=== PATIENT | male | born 1970 | race Asian ===

== ENCOUNTER → 2016-05-10 | Outpatient (CLI) | payer OTHER ==
--- NOTE | 2016-05-10 16:01 | DIAGNOSTIC IMAGING REPORT ---
CHEST 2 VIEWS ROUTINE CLINICAL HISTORY: Chest tightness. COMPARISON STUDY: No previous studies for comparison. FINDINGS: Lung volumes are normal. Lungs are clear. Cardiac size is normal. Mediastinal contours are normal. There is no evidence of pulmonary edema. There is no pneumothorax or pleural effusion. There may be several calcified nodules within the lungs. IMPRESSION: No acute cardiopulmonary findings. Electronically signed by: Edi Grubbs M.D. 05/10/2016 4:00 PM Dictated Date/Time: 05/10/2016 3:59 PM
== END | disposition home or self-care (01) ==
LOC: C.RADBC 15:36
PROVIDERS: ATTEND Internal Medicine
DX: R07.89 Other chest pain (principal)

== ENCOUNTER → 2016-05-15 | Outpatient (CLI) | payer OTHER ==
[2016-05-15 10:53] LABS: HEMATOCRIT 44.6 % (42-52); MEAN CELL VOLUME 80.4 fL (80-100); MEAN CORPUSCULAR HEMOGLOBIN 27.6 pg (25-34); MEAN CORPUSCULAR HGB CONC 34.3 g/dl (32-36); PLATELET COUNT 206 K/uL (130-400); RED BLOOD COUNT 5.55 M/uL (4.7-6.1); WHITE BLOOD COUNT 7.33 K/uL (4.8-10.8)
[2016-05-15 11:05] LABS: ALT/SGPT 93 U/L (12-78); AST/SGOT 36 U/L (15-37); BLOOD UREA NITROGEN 10 mg/dl (7-18); BUN/CREATININE RATIO 9.3 (10-20); CALCIUM 9.3 mg/dl (8.5-10.1); CARBON DIOXIDE 24 mmol/L (21-32); CHLORIDE 107 mmol/L (98-107); GLUCOSE 97 mg/dl (70-99); SODIUM 141 mmol/L (136-145)
[2016-05-15 11:08] LABS: ALB/GLOB RATIO 1.1 (0.9-2); ALKALINE PHOSPHATASE 54 U/L (45-117); CHOLESTEROL 222 mg/dl (0-200); CHOLESTEROL/HDL RATIO 5.6; HDL CHOLESTEROL 40 mg/dl; LDL CHOLESTEROL CALCULATED 107 mg/dl; TRIGLYCERIDES 373 mg/dl (0-150); VERY LOW DENSITY LIPOPROT CALC 75 mg/dl
== END | disposition home or self-care (01) ==
LOC: C.LAB1850 09:18
PROVIDERS: ATTEND Internal Medicine
DX: K76.0 Fatty (change of) liver, not elsewhere classified (principal); E78.5 Hyperlipidemia, unspecified; I10 Essential (primary) hypertension; R07.89 Other chest pain

== ENCOUNTER 2017-05-09 13:54 | Emergency (ER) | payer OTHER ==
[~2017-05-09] VITALS: Ht 172.7 cm; Wt 95.5 kg
[2017-05-09 14:03] VITALS: Ht 172.7 cm; Wt 95.5 kg
[2017-05-09] MEDS ORDERED: KETOROLAC TROMETHAMINE 60 MG/2 ML VIAL IM STA (14:43)
[2017-05-09] MEDS ORDERED: DEXAMETHASONE **PF** INJ 10 MG/ML VIAL IM ONE (14:45)
--- NOTE | 2017-05-09 15:30 | DIAGNOSTIC IMAGING REPORT ---
L-SPINE MIN 4 VIEWS ROUTINE CLINICAL HISTORY: Low back pain. COMPARISON: None FINDINGS: There is mild dextroscoliosis of lumbar spine. No fracture or suspicious lesion is evident. There is no significant disc space narrowing. Facet joints are intact. IMPRESSION: 1. No lumbar spine fracture. 2. Minimal rightward curvature of the lumbar spine. 3. No significant disc space narrowing or facet arthrosis by radiography. Electronically signed by: Edi Grubbs M.D. 05/09/2017 3:29 PM Dictated Date/Time: 05/09/2017 3:27 PM
[2017-05-09] MEDS ORDERED: IBUP-1451 PO (15:56)
[2017-05-09] MEDS ORDERED: CYCL10TA6 PO (15:56)
[2017-05-09] MEDS ORDERED: METH4PAK PO (15:56)
[2017-05-09] MEDS ORDERED: OXYC1TAB3 PO (15:56)
--- NOTE | 2017-05-09 15:57 | EMERGENCY ROOM VISIT NOTE ---
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 He describes bilateral low back pain, right worse than left that radiates into the posterior aspect of the right leg, down to his calf. He has had pain for a couple of months, and has been followed by his primary care doctor, Dr. Castellanos, for this. He reports he did a course of prednisone in mid February which helped slightly, and is presently in physical therapy, he was scheduled for physical therapy today. 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 It radiates into the right buttocks, down the posterior thigh to the calf. He has taken several doses of ibuprofen, with minimal relief , and applied heat to the area. He is having difficulty finding a comfortable position. He states that lying flat is best, and he has increased pain with position changes, particularly when he sits on hard surfaces. He denies any numbness, tingling or weakness into the lower extremities, no bowel or bladder incontinence or saddle anesthesias. He presently rates his pain a 10/10. REVIEW OF SYSTEMS: Review of systems as per HPI. All other systems reviewed were negative. 10 systems reviewed. PMH: Electronic medical records are reviewed and summarized as above/below. See Problem List. SOCIAL HISTORY: Patient lives at home with roommates. He does not smoke or drink alcohol. PHYSICAL EXAM: Vital Signs: Reviewed Nurse's notes. CONSTITUTIONAL: Patient is an uncomfortable appearing 46-year-old male who is awake and alert and seated on the edge of the [place] in mild distress due to his stated complaint. There is significant discomfort with position changes. NECK: No bruits auscultated. Supple without lymphadenopathy. No thyromegaly. No meningeal signs. Full active range of motion without discomfort. CARDIOVASCULAR: Regular rate and rhythm, with normal S1 and S2, no murmur or gallop or rub is heard. No carotid bruits auscultated. No JVD. Peripheral pulses easily palpable. RESPIRATORY: Breath sounds equal and clear to auscultation without wheezes, rales, or rhonchi heard. Full and equal chest expansion without accessory muscle use or retractions. ABDOMEN: Bowel sounds are present. Abdomen is soft, nontender and nondistended. INTEGUMENTARY: No lesions or rash, normal skin turgor. LYMPH: No lymphadenopathy. SPINE: Examination of the patient's back does not demonstrate any ecchymosis, abrasions or outward signs of trauma. No erythema, increased warmth or induration. Patient has no midline tenderness over the thoracolumbar spinous processes, he has some mild right paraspinous muscle tenderness without spasm, and has some right SI joint discomfort as well. Range of motion is essentially unable to be performed due to pain. EXTREMITIES: Leg lengths are symmetrical. Negative logroll bilaterally. Normal strength including dorsi-flexion and plantar flexion of the great toes and ankles and flexion and extension of the knees and flexion of the hips. Positive seated straight leg raise testing on the right. Lower extremity DTRs are equal and symmetrical bilaterally. Distal pulses are easily palpable. Sensation light touch is intact over the lower extremities bilaterally. EMERGENCY DEPARTMENT COURSE: The patient was seen and evaluated as above. His old records were reviewed. He presents to the emergency department for evaluation of severe low back pain, he has had problems for several months and is currently in physical therapy. 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 On physical exam, he has radicular right low back pain, no weakness, and no signs or symptoms consistent with acute cord compression or cauda equina syndrome. He was offered medication for discomfort, he declined narcotic analgesia due to obligations this evening, and therefore was given Toradol 60 mg and Decadron 10 mg IM. Lumbar spine x-rays were obtained. X-ray findings are as noted below. On reassessment, the patient reported slight relief of hip pain, rated his discomfort a 7/10 at discharge. Continue conservative care measures were discussed with the patient. As he has previously stated, he is busy this weekend and cannot take any sedating medications regularly, but was agreeable to use them at bedtime only. He did have some relief with a prior course of prednisone and therefore was placed on an additional Medrol Dosepak. He was given prescriptions for Flexeril and oxycodone, and instructed on dosing and schedule. He was advised to follow-up with his primary care provider next week for further care and evaluation, as I suspect that he may benefit from an MRI. The patient expressed understanding of this and was agreeable. He was educated on the worrisome signs or symptoms for which he should return to the emergency department. 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 Medication reconciliation: I attest that I have personally reviewed the patient' s current medication list. Blood pressure screening : Patient was found to have normal blood pressure on screening and does not require follow-up. Patient was reviewed in the [facility] Prescription Drug Monitoring Program, and there was no record. L-SPINE MIN 4 VIEWS ROUTINE CLINICAL HISTORY: Low back pain. COMPARISON: None FINDINGS: There is mild dextroscoliosis of lumbar spine. No fracture or suspicious lesion is evident. There is no significant disc space narrowing. Facet joints are intact. IMPRESSION: 1. No lumbar spine fracture. 2. Minimal rightward curvature of the lumbar spine. 3. No significant disc space narrowing or facet arthrosis by radiography. Problem List Medical Problems: (1) Essential (Primary) Hypertension Status: Chronic (2) Stomach problems Status: Chronic Current/Historical Medications Scheduled Lisinopril (Zestril), 10 MG PO DAILY Methylprednisolone (Medrol Dosepak), 0 PO DAILY Multivitamins/Minerals (Mvi With Minerals), 1 TAB PO DAILY Omeprazole (Prilosec), 20 MG PO DAILY Scheduled PRN Cyclobenzaprine Hcl (Flexeril), 10 MG PO TID PRN for Muscle Spasms Ibuprofen Tab (Motrin), 800 MG PO TIDM PRN for Pain Ibuprofen Tab (Advil), 800 MG PO Q8 PRN for Pain Oxycodone Immediate Rel Tab (Roxicodone Ir), 1-2 TAB PO Q4H PRN for Severe Pain Allergies Coded Allergies: Aspirin (Verified Allergy, Severe, GI SYMPTOMS, 05/09/17) Penicillins (Verified Allergy, Unknown, STRONG FAMILY HX., 05/09/17) Prochlorperazine (Verified Adverse Reaction, Severe, LOSS OF MUSCLE CONTROL, 05/09/17) Vital Signs Date Time Temp Pulse Resp B/P (MAP) Pulse Ox O2 Delivery O2 Flow Rate FiO2 05/09/17 16:06 36.8 81 19 121/82 94 05/09/17 14:03 36.8 81 20 115/76 97 Room Air Medications Administered Medications (Trade) Dose Ordered Sig/Alexi Route Start Time Stop Time Status Last Admin Dose Admin Dexamethasone Sodium Phosphate (Dexamethasone Inj Pf) 10 mg NOW ONCE IM 05/09/17 14:45 05/09/17 14:46 DC 05/09/17 14:52 10 MG Ketorolac Tromethamine (Toradol Inj) 60 mg NOW STAT IM 05/09/17 14:43 05/09/17 14:45 DC 05/09/17 14:52 60 MG Departure Information Impression Primary Impression: Acute radicular low back pain Prescriptions Ibuprofen Tab (MOTRIN) 800 Mg Tab 800 MG PO TIDM Y for Pain, #90 TAB Prov: Renee May PA 05/09/17 Oxycodone Immediate Rel Tab (ROXICODONE IR) 5 Mg Tab 1-2 TAB PO Q4H Y for Severe Pain, #30 TAB For Initial Treatment Prov: Renee May PA 05/09/17 Methylprednisolone (MEDROL DOSEPAK) 4 Mg Sean 0 PO DAILY, #1 PKT ONCE DAILY DIRECTED. Prov: Renee May PA 05/09/17 Cyclobenzaprine Hcl (FLEXERIL) 10 Mg Tab 10 MG PO TID Y for Muscle Spasms, #30 TAB Prov: Renee May PA 05/09/17 Referrals Sobia Castellanos M.D. (PCP) Patient Instructions My [facility] Additional Instructions Medrol Dosepak : Once daily until the prescription is finished. Start this medication 05/10. It is best to take this earlier in the day as some patients note occasional difficulty falling asleep when taken in the late evening. Cyclobenzaprine (Flexeril) 10 mg: Take 1 pills 3 times daily as needed for muscle spasms. Avoid alcohol, operating machinery or dangerous equipment, working on ladders or roofs, DRIVING, or situations where being under the influence may be dangerous. Oxycodone (OxyIR) 5mg: Take 1-2 pills every four hours for breakthrough pain. Avoid alcohol, operating machinery or dangerous equipment, working on ladders or roofs, DRIVING, or situations where being under the influence may be dangerous. It is recommended to use an [id number] stool softener such as Colace, 100mg twice daily while taking this medication to avoid constipation. Ibuprofen(Motrin, Advil) may be used for fever or pain. Use 600mg every six hours as needed. Take with food. Avoid using more than 2400mg in a 24 hour period. Do not use 2400mg per day for more than three consecutive days without physician direction. Prolonged inappropriate use can lead to stomach upset or ulcers. This medication can be taken if you need to drive, work, or perform activities which may be dangerous when taking narcotic pain medication. Rest and avoid heavy lifting until your symptoms resolve and then gradually return to full activity. A good rule of thumb is if it hurts your back to perform a certain activity, then it should be avoided until you are healthy again. A heating pad, warm compresses, or a hot shower may help with tight muscles and can be done several times a day as needed. Continue current medications. Return to the ER immediately for any numbness, tingling, severe pain, loss of control of your bowels or bladder, inability to walk, or as needed. Follow up with your primary care physician next week for a recheck of your current condition.
[2017-05-09] MEDS ORDERED: PRLSR20 PO (16:01)
[2017-05-09] MEDS ORDERED: IBUP-103 PO (16:01)
[2017-05-09] MEDS ORDERED: LISI-461 PO (16:01)
[2017-05-09] MEDS ORDERED: MULT-513 PO (16:01)
[2017-05-09 16:06] VITALS: BP 121/82; PULSE 81; TEMP 36.8; O2SAT 94
== END 2017-05-09 16:07 | disposition home or self-care (01) ==
LOC: C.EDB 13:56 → C.EDD 16:07
DX: M54.16 Radiculopathy, lumbar region (principal); I10 Essential (primary) hypertension; Z79.899 Other long term (current) drug therapy; Z88.0 Allergy status to penicillin; Z88.6 Allergy status to analgesic agent; Z88.8 Allergy status to other drugs, medicaments and biological substances